=== PATIENT | male | born 1970 | race Two or more races ===

== ENCOUNTER 2017-03-26 08:34 | Emergency (ER) | payer MEDICAID ==
[~2017-03-26] VITALS: Ht 177.8 cm; Wt 88.5 kg
[~2017-03-26 08:34] MED LIST: ABAC300T PO; CALC600T12 PO; CHOL100044 GT; INSU100V26; LAMI150T PO; MULT-70 PO; OMEG500C PO; RALT400T PO; VITA1TAB20 PO
--- NOTE | 2017-03-26 08:45 | NUR ---
PATIENT TO ED DT LOWER BACK PAIN, 03/13, NON RADIATING X 3 DAYS. PER PT HE FELL 3 DAYSA GO,DENIES LOC. PT ABLE TO AMBULATE HOWEVER WITH DISCOMFORT. VSS.
--- NOTE | 2017-03-26 08:46 | NUR ---
MD RAM AT BEDSIDE
[2017-03-26 09:25] VITALS: BP 130/90
--- NOTE | 2017-03-26 09:25 | NUR ---
Patient discharged to home in stable condition. Written and verbal after care instructions given. Patient verbalizes understanding of instruction.
== END 2017-03-26 09:26 | disposition home or self-care (01) ==
LOC: ER 08:36
DX: M54.5 Low back pain (principal); E11.9 Type 2 diabetes mellitus without complications; B19.10 Unspecified viral hepatitis B without hepatic coma; F10.10 Alcohol abuse, uncomplicated; Z88.1 Allergy status to other antibiotic agents; Z79.4 Long term (current) use of insulin; Z98.890 Other specified postprocedural states; Z87.440 Personal history of urinary (tract) infections; W18.39XA Other fall on same level, initial encounter; Y93.89 Activity, other specified; Y92.89 Other specified places as the place of occurrence of the external cause; Y99.9 Unspecified external cause status
CPT/HCPCS: 72110; 99284; A4606; Z7610